=== PATIENT | female | born 1970 | race Caucasian/White ===

== ENCOUNTER 2022-07-14 07:09 | Day surgery (SDC) | payer BC, SELFPAY ==
[2022-07-09 13:50] VITALS: BMI 40.3
[2022-07-14] VITALS (11 sets, daily range): BP systolic 97–157; BP diastolic 66–94; PULSE 60–86; RESP 12–18; TEMP 36.2–36.6; O2SAT 92–100; BMI 40.3
--- NOTE | 2022-07-14 08:32 | SUR.OPER ---
Prone on spine table, head in foam head support, padded chest and pelvic supports, gel pad at knees, lower legs supported by pillows; nipples, genitalia and toes free of pressure, arms secured on foam padded arm boards at <90 degrees abduction. Tape over blanket at thigh secured to table.
[2022-07-14] MEDS: LACTATED RINGERS 1,000 ML 84 ML IV (08:36)
--- NOTE | 2022-07-14 08:41 | PM.PREOP ---
Pre-operative Note COVID-19 Criteria for continued procedure: Expected advancement of disease process, Possibility delay results in more complex future surgery or treatment, Increased loss of function, Continuing or worsening of significant or severe pain, Deterioration of the patient's condition or overall health and Delay expected to result in less-positive ultimate med/surg outcome Interval Note History & Physical reviewed/Exam performed by Physician: Yes Changes to H&P: No
--- NOTE | 2022-07-14 08:49 | SUR.PREOP ---
Pt with anaphylaxis allergy to Penicillin. See new order for Clindamycin.
[2022-07-14] MEDS: CLINDAMYCIN 900 MG/50 ML PIGGYBACK 50 MG IV (09:00)
[2022-07-14] MEDS: BUPIVACAINE LIPOSOME 266 MG/20 ML VIAL INJ (09:13)
[2022-07-14] MEDS: methylPREDNISolone acet DEPO 40 MG/ML VIAL IM (09:14)
[2022-07-14] MEDS: BUPIVACAINE 0.25% (PF) VIAL 30 ML INJ (09:14)
--- NOTE | 2022-07-14 09:34 | DI.RAD.S_ITS ---
PROCEDURE: XR LUMBAR SPINE 2-3V INDICATIONS: L4-5 MICRODISCECTOMY TECHNIQUE: 2 intraoperative views of the lumbar spine were acquired. COMPARISON: None. FINDINGS: Intraoperative spot films demonstrate localization of the lower lumbar spine. IMPRESSION: Intraoperative spot films as above. Dictated by: Petra Morris M.D. on 07/14/2022 at 11:37 Transcribed by: CELESTE on 07/14/2022 at 11:39 Approved by: Petra Morris M.D. on 07/14/2022 at 16:38
--- NOTE | 2022-07-14 10:06 | P.OP_ITS ---
Operative Date/Time/Diagnoses Date of procedure: 07/14/22 Time of procedure: 08:40 Pre-op diagnosis: 1. L4-5 disc herniation 2. Lumbar radiculopathy Post-op diagnosis: same Procedure & Clinicians Procedure: 1. L4-5 right microdiscectomy 2. Utilization of microsurgical technique and operating microscope Same procedure as scheduled: Yes Indications: Patient has been having chronic back pain and worsening lumbar radiculopathy. Patient failed multiple conservative management with worsening pain weakness and numbness in her lower extremity. Patient has been having difficulty performing activity of daily living. After discussing risks benefits of treatment options, patient elected proceed with surgery. Surgeon: Yanet Wetzel [employer] Software Developer: Radha De Leon Click Yes if Unassisted: No Anesthesia Type: General Operative Notes Closure Type: primary Specimen(s): none sent Estimated Blood Loss (mL): 5 Blood products transfused: none Procedure in detail: Patient was seen in the preoperative area. Risks and benefits of the surgery was discussed with the patient. Informed consent was obtained from the patient and placed in the chart. Surgical site was marked. Patient was taken to the operative room. General anesthesia was administered. Prophylactic antibiotic was given to the patient less than 30 min before the incision was made. Patient was placed into a prone position on the Pankaj table. Patient's back was then prepped and draped in the sterile fashion. Time-out was performed at this time. Using AP and lateral C-arm imaging the interval between L4-5 was identified and marked on patient's back. A 1 inch incision 1 in from midline was made on the right side. The fascia was incised in line with skin incision. Globus MARS retractors was placed inside the incision and docked onto the L4 lamina. Using microsurgical technique and operating microscope, a L4 laminotomy was performed using a Kerrison rongeur. Liagamentum flavum was resected at the site of the laminotomy. The disc space at L4-5 was identified. Microdiscectomy was performed by incising the annulus with #11 blade. Microcurettes and pituitary was used to removed herniated disc fragments of disc from the epidural space. After the microdiskectomy was completed, the area medial lateral superior and i nferior to the area of the microdiskectomy was inspected and explored using a micro curette. No other impinging structure was identified. The wound was then irrigated with sterile normal saline. 40 mg Depo-Medrol was placed into the epidural space. The deep fascia was closed with 1-0 Vicryl. The subcutaneous tissue was closed with 2-0 Vicryl. The skin was closed with skin jesus. Patient tolerated the procedure well. There were no complications. Patient was transferred recovery room in stable condition. Complications: none Post-operative Condition: stable Disposition: PACU Plan for aftercare: Discharge to home
[2022-07-14] MEDS: ONDANSETRON 4 MG/2 ML INJ IV (10:18)
[2022-07-14] MEDS: hydrOXYzine 50 MG/ML INJ 25 MG IM (10:18)
[2022-07-14] MEDS: OXYCODONE/ACETAMINOPHEN 5/325 TABLET 1 TAB PO (10:19)
[2022-07-14] MEDS: LORazepam 2 MG/ML INJ 0.25 MG IV ×2 (10:24→11:22)
[2022-07-14] MEDS: fentaNYL 100 MCG/2 ML INJ IV ×4 (10:35→10:49)
[2022-07-14] MEDS: HYDROMORPHONE 2 MG INJ 0.5 MG IV (11:38)
[2022-07-14] MEDS: HYDROMORPHONE 0.5 MG INJ IV (12:17)
--- NOTE | 2022-07-14 13:31 | SUR.PHASEII ---
1155 - receeivedd report from NAIL MAKING MACHINE TENDER and assumedd ca
--- NOTE | 2022-07-14 13:32 | SUR.PHASEII ---
1055 - Received report from above nurse and assumed care of pt.. c/o pain 8.5. Will continue to monitor.
--- NOTE | 2022-07-14 13:34 | SUR.PHASEII ---
1130 - pt rocking back and forth in bed, grimacing. c/o pain [address] Wetzel and received new order for Dilaudid 0.5 x 20 30 mins apart if needed.
--- NOTE | 2022-07-14 13:38 | SUR.PHASEII ---
Pt on continuous bedside pulse ox monitor. 02 sats ranging from 93-97, dilaudid repeated as ordered. pt snoring, then waking up and stating pain still and 8 or 8.5. VSS. 02 sats 9
== END 2022-07-14 14:30 | disposition home or self-care (01) ==
PROVIDERS: PCP Physician Assistant; Referring Provider Orthopaedic Surgery Orthopaedic Surgery of the Spine; Visit Provider Orthopaedic Surgery Orthopaedic Surgery of the Spine
PROC: (CPT 63030; principal; 2022-07-14 08:45)
DX: M51.26 Other intervertebral disc displacement, lumbar region (principal); M48.062 Spinal stenosis, lumbar region with neurogenic claudication; M54.16 Radiculopathy, lumbar region
CPT/HCPCS: 63030; 72100; 76000; C9290; J0330; J1030; J1100; J1170; J2060; J2250; J2405; J2704; J3010; J3410; J3490